=== PATIENT | male | born 1950 | race Caucasian/White ===

== ENCOUNTER 2016-10-11 19:47 | Inpatient (IN) | payer OTHER ==
[2016-10-11] MEDS ORDERED: Iohexol 240 (50 ml) PO STA (20:35)
[2016-10-11] MEDS ORDERED: Sodium Chloride 0.9% 1,000 ML IV ONE (20:35)
--- NOTE | 2016-10-11 20:52 | C.PDOC ---
History Of Present Illness 65 year old male presents to the ED with complaints of mid-abdominal pain since this morning. He noted he went to the pharmacy and took medication with a handwritten label containing blue pills and no further identifying information, with no relief. Patient denies any radiating pain, (+) nausea, (+) vomiting, (- ) fever, or diarrhea. No past abd surg Time Seen by Provider: 10/11/16 20:04 Chief Complaint (Nursing): Abdominal Pain History Per: Patient History/Exam Limitations: no limitations Onset/Duration Of Symptoms: Hrs Current Symptoms Are (Timing): Still Present Severity: Moderate Location Of Pain/Discomfort: Other (mid-abdominal pain) Quality Of Discomfort: "Pain" Associated Symptoms: Nausea, Vomiting. denies: Fever, Chills, Back Pain, Chest Pain Past Medical History Reviewed: Historical Data, Nursing Documentation, Vital Signs Vital Signs: Last Vital Signs Temp 98.8 F 10/12/16 08:13 Pulse 79 10/12/16 08:13 Resp 20 10/12/16 08:13 BP 98/55 L 10/12/16 08:13 Pulse Ox 99 10/12/16 08:13 - Medical History PMH: Diabetes, HTN Surgical History: No Surg Hx Family History: States: Unknown Family Hx - Social History Hx Tobacco Use: No Hx Alcohol Use: No Hx Substance Use: No Review Of Systems Constitutional: Negative for: Fever, Chills, Sweats Respiratory: Negative for: Cough, Shortness of Breath Gastrointestinal: Positive for: Abdominal Pain. Negative for: Nausea, Vomiting , Diarrhea Genitourinary: Negative for: Dysuria Musculoskeletal: Negative for: Back Pain Physical Exam - Physical Exam Appears: Non-toxic, No Acute Distress Skin: Warm, Dry Head: Normacephalic Neck: Supple Chest: Symmetrical, No Deformity Cardiovascular: Rhythm Regular, Murmur Respiratory: No Rales, No Rhonchi, No Wheezing Gastrointestinal/Abdominal: Soft, Tenderness (mid and lower abdominal tenderness ), No Distention, No Guarding, No Rebound Extremity: Normal ROM, No Pedal Edema Neurological/Psych: Oriented x3, Normal Speech, Normal Cognition ED Course And Treatment - Laboratory Results Result Diagrams: 10/12/16 08:25 10/12/16 08:25 O2 Sat by Pulse Oximetry: 98 - Radiology CXR: Read By Radiologist (see report) Progress Note: Labs IV CT meds ordered Medical Decision Making Medical Decision Making: Pt remained stable in the ED abd remained soft Pt tolerated contrast for CT without vomiting Results of labs and CT discussed with pt NGT placed by me Case discussed with dr Thapa recomedned medical admission she also follow Pt admitted to dr Stephanie Mace Disposition Counseled Patient/Family Regarding: Studies Performed, Diagnosis - Disposition Disposition: HOSPITALIZED Disposition Time: 00:00 Condition: SERIOUS - Clinical Impression Clinical Impression: Abdominal pain, SBO (small bowel obstruction) - Scribe Statement The provider has reviewed the documentation as recorded by the Scribe Ciera Mcdonald All medical record entries made by the Idaibsaroj were at my direction and personally dictated by me. I have reviewed the chart and agree that the record accurately reflects my personal performance of the history, physical exam, medical decision making, and the department course for this patient. I have also personally directed, reviewed, and agree with the discharge instructions and disposition.
[2016-10-11] MEDS ORDERED: Iohexol 240 (50 ml) ONE (21:04)
[2016-10-11] MEDS ORDERED: Sodium Chloride 0.45% 1,000 ML IV ONE (21:04)
[2016-10-11 21:26] LABS: BASO % 0.4 % (0.0-2.0); EOS # 0.5 K/uL (0.0-0.7); EOS % 5.8 % (0.0-4.0); HEMATOCRIT 39.5 % (35.0-51.0); LYMPH # 1.1 K/uL (1.0-4.3); LYMPH % 13.2 % (20.0-40.0); MEAN CELL VOLUME 100.9 fL (80.0-94.0); MEAN CORPUSCULAR HEMOGLOBIN 33.8 pg (27.0-31.0); MEAN CORPUSCULAR HGB CONC 33.5 g/dL (33.0-37.0); MEAN PLATELET VOLUME 8.4 fL (7.2-11.7); MONO # 0.7 K/uL (0.0-0.8); MONO % 8.5 % (0.0-10.0); RED CELL DISTRIBUTION WIDTH 14.4 % (11.5-14.5); WHITE BLOOD COUNT 8.4 K/uL (4.8-10.8)
[2016-10-11 21:29] LABS: RBC URINE 1 /hpf (0-3); URINE BILIRUBIN NEGATIVE (NEGATIVE); URINE BLOOD NEGATIVE (NEGATIVE); URINE COLOR Yellow (YELLOW); URINE GLUCOSE (UA) 3+ mg/dL (Normal); URINE KETONE 1+ mg/dL (NEGATIVE); URINE LEUKOCYTE ESTERASE NEG Leu/uL (Negative); URINE PROTEIN NEGATIVE (NEGATIVE); URINE UROBILINOGEN NORMAL mg/dL (0.2-1.0); WBC URINE < 1 /hpf (0-5)
[2016-10-11 21:37] LABS: CHLORIDE 97 mmol/L (98-107)
[2016-10-11 21:38] LABS: POTASSIUM 3.8 mmol/L (3.6-5.2); SODIUM 138 mmol/L (132-148)
[2016-10-11 21:40] LABS: ALB/GLOB RATIO 1.3 (1.0-2.1); ALKALINE PHOSPHATASE 95 U/L (38-126); ALT/SGPT 29 U/L (21-72); AST/SGOT 34 U/L (17-59); BILIRUBIN,TOTAL 0.4 mg/dL (0.2-1.3); BLOOD UREA NITROGEN 17 mg/dL (9-20); CARBON DIOXIDE 26 mmol/L (22-30); GFR AFRICAN-AMERICAN > 60; TOTAL PROTEIN 7.6 g/dL (6.3-8.3)
[2016-10-11 21:41] LABS: GLUCOSE,RANDOM 104 mg/dL (75-110)
[2016-10-11] MEDS ORDERED: Iodixanol 320 MG/ML 100 ML BOTTLE IV ONE (22:50)
[2016-10-12] MEDS ORDERED: Lidocaine 2% Inj (20ml) ONE (00:03)
[2016-10-12] MEDS ORDERED: Lidocaine 2% Jelly (Uro-Jet) ONE (00:04)
[2016-10-12] MEDS: Dextrose 5%/0.45% NS 1,000 ML IV SCH ×2 (03:04→17:46)
--- NOTE | 2016-10-12 03:21 | CP.PCM.CON ---
History of Present Illness - History of Present Illness History of Present Illness: General Surgery Consult Re: SBO HPI: 65M presents to ED C/O abdominal pain that began yesterday at 3 AM. Pain was mostly epigastric but felt pain in other spots. Last BM was todat and normal. He has never had a colonoscopy. Denies F/C, N/V/D/C, SOB, chest pain. Currently without complaints. PMH: DM, HLD PSH: R hand, cataracts SH: No tobacco, EtOH, of drug use All: NKDA Meds: See MAR Review of Systems - Review of Systems All systems: reviewed and no additional remarkable complaints except (as per HPI ) Past Patient History - Past Social History Smoking Status: Never Smoked - ENDOCRINE/METABOLIC Hx Diabetes Mellitus Type 2: Yes - MUSCULOSKELETAL/RHEUMATOLOGICAL Hx Falls: No - PSYCHIATRIC Hx Substance Use: No Meds Allergies/Adverse Reactions: Allergies Allergy/AdvReac Type Severity Reaction Status Date / Time No Known Allergies Allergy Verified 10/11/16 20:02 - Medications Medications: Current Medications Piperacillin Sod/Tazobactam Sod (Zosyn 3.375 In Ns 100ml) 100 mls @ 100 mls/hr IVPB Q8 [facility] Dextrose/Sodium Chloride (Dextrose 5%/0.45% Ns 1000 Ml) 1,000 mls @ 75 mls/hr IV .[id number] [facility] Insulin Aspart (Novolog) 0 unit SC ACHS [facility] PRN Reason: Protocol Pantoprazole Sodium (Protonix Inj) 40 mg IVP DAILY [facility] Physical Exam - Constitutional Appears: Non-toxic, No Acute Distress - Head Exam Head Exam: ATRAUMATIC, NORMOCEPHALIC - Eye Exam Eye Exam: EOMI. absent: Scleral icterus - ENT Exam ENT Exam: Mucous Membranes Moist Additional comments: trachea midline - Respiratory Exam Respiratory Exam: NORMAL BREATHING PATTERN. absent: Respiratory Distress - Cardiovascular Exam Cardiovascular Exam: RRR, +S1, +S2 - GI/Abdominal Exam GI & Abdominal Exam: Soft, Tenderness (with deep plapation). absent: Distended , Firm, Guarding, Rebound, Rigid - Rectal Exam Rectal Exam: Deferred - Extremities Exam Extremities exam: Positive for: normal capillary refill. Negative for: calf tenderness, pedal edema - Back Exam Back exam: absent: CVA tenderness (L), CVA tenderness (R) - Neurological Exam Neurological exam: Alert, Oriented x3 - Psychiatric Exam Psychiatric exam: Normal Affect, Normal Mood - Skin Skin Exam: Dry, Warm Results - Vital Signs Recent Vital Signs: Last Vital Signs Temp 97.8 F 10/12/16 02:40 Pulse 61 10/12/16 02:40 Resp 20 10/12/16 02:40 BP 118/71 10/12/16 02:40 Pulse Ox 96 10/12/16 02:40 - Labs Result Diagrams: 10/11/16 21:20 10/11/16 21:20 - Imaging and Cardiology CT scan - abdomen Status: Image reviewed by me, Report reviewed by me Assessment & Plan - Assessment and Plan (Free Text) Assessment: 65M with Low SBO Plan: NPO, bowel rest IVF NGT to LIS Serial abd exams Analgesia Lindsay Garcia D/W Dr. Elier Cruz PGY3
[2016-10-12] MEDS ORDERED: Dextrose 5%/0.45% NS 1,000 ML IV SCH (04:30)
[2016-10-12] MEDS: Piperacillin/Tazobact 3.375 gm 100 ML IVPB SCH ×3 (05:21→21:23)
[2016-10-12] MEDS: Albuterol-Ipratrop 3 mg / 0.5 (3 ml) UD INH SCH ×3 (07:46→19:37)
[2016-10-12] MEDS: (Novolog) Insulin Aspart, Recombinant 100 u/ml 10 ml vial SC SCH ×4 (08:06→21:31)
[2016-10-12 08:31] LABS: BASO % 0.6 % (0.0-2.0); EOS # 0.1 K/uL (0.0-0.7); EOS % 1.3 % (0.0-4.0); HEMATOCRIT 36.8 % (35.0-51.0); LYMPH # 0.5 K/uL (1.0-4.3); LYMPH % 10.6 % (20.0-40.0); MEAN CELL VOLUME 102.2 fL (80.0-94.0); MEAN CORPUSCULAR HEMOGLOBIN 33.5 pg (27.0-31.0); MEAN CORPUSCULAR HGB CONC 32.8 g/dL (33.0-37.0); MEAN PLATELET VOLUME 8.5 fL (7.2-11.7); MONO # 0.4 K/uL (0.0-0.8); RED CELL DISTRIBUTION WIDTH 14.2 % (11.5-14.5); WHITE BLOOD COUNT 4.4 K/uL (4.8-10.8)
[2016-10-12 08:56] LABS: CHLORIDE 100 mmol/L (98-107); POTASSIUM 3.3 mmol/L (3.6-5.2); SODIUM 137 mmol/L (132-148)
[2016-10-12 08:58] LABS: ALB/GLOB RATIO 1.3 (1.0-2.1); ALKALINE PHOSPHATASE 84 U/L (38-126); ALT/SGPT 28 U/L (21-72); AST/SGOT 29 U/L (17-59); BLOOD UREA NITROGEN 18 mg/dL (9-20); CARBON DIOXIDE 23 mmol/L (22-30); GFR AFRICAN-AMERICAN > 60; TOTAL PROTEIN 6.4 g/dL (6.3-8.3)
[2016-10-12 08:59] LABS: GLUCOSE,RANDOM 97 mg/dL (75-110); MAGNESIUM 1.8 mg/dL (1.6-2.3); PHOSPHOROUS 2.6 mg/dL (2.5-4.5)
--- NOTE | 2016-10-12 09:31 | CP.PCM.PN ---
Subjective - Date & Time of Evaluation Date of Evaluation: 10/12/16 Time of Evaluation: 09:30 - Subjective Subjective: present with epigastric abdominal pain Objective - Vital Signs/Intake and Output Vital Signs (last 24 hours): Temp Pulse Resp BP Pulse Ox 98.8 F 79 20 98/55 L 99 10/12/16 08:13 10/12/16 08:13 10/12/16 08:13 10/12/16 08:13 10/12/16 08:13 Intake and Output: 10/12/16 10/12/16 06:59 18:59 Output Total 250 Balance -250 - Medications Medications: Current Medications Albuterol/Ipratropium (Duoneb 3 Mg/0.5 Mg (3 Ml) Ud) 3 ml INH RQ6 [facility] Last Admin: 10/12/16 07:46 Dose: 3 ml Piperacillin Sod/Tazobactam Sod (Zosyn 3.375 In Ns 100ml) 100 mls @ 100 mls/hr IVPB Q8 [facility] Last Admin: 10/12/16 05:21 Dose: 100 mls/hr Dextrose/Sodium Chloride (Dextrose 5%/0.45% Ns 1000 Ml) 1,000 mls @ 75 mls/hr IV .[id number] [facility] Last Admin: 10/12/16 03:04 Dose: 75 mls/hr Insulin Aspart (Novolog) 0 unit SC ACHS [facility] PRN Reason: Protocol Last Admin: 10/12/16 08:06 Dose: Not Given Metoclopramide HCl (Reglan) 5 mg IVP Q6 [facility] Pantoprazole Sodium (Protonix Inj) 40 mg IVP DAILY [facility] Pneumococcal Polyvalent Vaccine (Pneumovax 23 Vaccine) 0.5 ml IM .ONCE ONE Stop: 10/14/16 10:01 - Labs Labs: 10/12/16 08:25 10/12/16 08:25 Assessment and Plan (1) Abdominal pain Status: Acute (2) Abnormal CT of brain Status: Acute (3) Bandemia Status: Acute (4) Bronchitis Status: Acute (5) Diabetes Status: Acute (6) Elevated LFTs Status: Acute (7) HTN (hypertension) Status: Acute (8) Headache Status: Acute (9) Headache Status: Acute (10) Pharyngitis Status: Acute (11) Prophylactic measure Status: Acute (12) SBO (small bowel obstruction) Status: Acute - Assessment and Plan (Free Text) Plan: NPO, bowel rest IVF NGT to LIS Serial abd exams Analgesia Lindsay Garcia D/W Dr. Thapa
--- NOTE | 2016-10-12 10:28 | CT ---
PROCEDURE: CT Abdomen and Pelvis with oral and IV contrast. HISTORY: Mid to lower abd pain COMPARISON: None available. TECHNIQUE: Contiguous axial images of the abdomen and pelvis. Oral and IV contrast was administered. Coronal and Sagittal reformats generated and reviewed. Contrast dose: 100 mL Visipaque 320 Radiation dose: Total exam DLP = 612.11 mGy-cm. This CT exam was performed using one or more of the following dose reduction techniques: Automated exposure control, adjustment of the mA and/or kV according to patient size, and/or use of iterative reconstruction technique. FINDINGS: LOWER THORAX: No visible consolidation, pleural effusion, or pneumothorax. LIVER: Unremarkable. GALLBLADDER AND BILE DUCTS: Unremarkable. PANCREAS: Unremarkable. SPLEEN: Evidence of cleft. Otherwise unremarkable. ADRENALS: Indeterminate 2 cm nodule involving the left adrenal gland, indeterminate. The right adrenal gland appears unremarkable. KIDNEYS AND URETERS: The kidneys enhance symmetrically. No hydronephrosis or obstructing renal calculus. BLADDER: The urinary bladder appears unremarkable. REPRODUCTIVE: The prostate gland measures approximately 4.0 x 5.0 cm. APPENDIX: The appendix appears within normal limits of caliber. No secondary signs of acute appendicitis. BOWEL: Gastric distension. Multiple dilated loops of small bowel with evidence of fecalization, interloop fluid, N suspected hyperemia. Transition point presumed within the distal small bowel proximal to the ileocecal valve (coronal image 60). Distal bowel loops appear decompressed. PERITONEUM: No significant free fluid. No definite free air. LYMPH NODES: No bulky lymphadenopathy identified. VASCULATURE: No aortic aneurysm. BONES: Mild degenerative changes. OTHER FINDINGS: None. IMPRESSION: Findings consistent with high-grade distal small bowel obstruction as above. 2 cm left adrenal gland nodule indeterminate. Recommend dedicated cross-sectional imaging for further characterization. Preliminary impression was provided by virtual radiologic.
[2016-10-12] MEDS: Potassium Chloride 20 mEq 100 ML IVPB SCH ×2 (11:35→16:23)
--- NOTE | 2016-10-12 13:17 | RAD ---
PROCEDURE: Radiographs of the chest and abdomen (obstructive series) HISTORY: SBO COMPARISON: CT abdomen and pelvis with contrast performed 10/11/16, chest x-ray performed 11/04/13 TECHNIQUE: AP radiograph of the chest, with upright and supine radiographs of the abdomen. FINDINGS: CHEST: Heart size appears top normal. Examination limited by habitus and hypoinflation. Central vascular congestion. Bibasilar atelectasis. Please note that chest x-ray has limited sensitivity for the detection of pulmonary masses. ABDOMEN AND PELVIS: Examination limited by motion. Oral contrast is seen within the right colon. Residual contrast within the urinary bladder. Moderate constipation. Nonspecific bowel gas pattern with prominent of small bowel loops in the mid abdomen. No definite free air. Degenerative changes. IMPRESSION: Central vascular congestion. Bibasilar atelectasis. Residual contrast within the urinary bladder. Moderate constipation. Nonspecific bowel gas pattern with prominent of small bowel loops in the mid abdomen.
[2016-10-13] MEDS: Albuterol-Ipratrop 3 mg / 0.5 (3 ml) UD INH SCH ×4 (01:12→20:26)
[2016-10-13] MEDS: Piperacillin/Tazobact 3.375 gm 100 ML IVPB SCH (06:04)
[2016-10-13] MEDS: Dextrose 5%/0.45% NS 1,000 ML IV SCH (06:05)
--- NOTE | 2016-10-13 07:21 | CP.PCM.PN ---
Subjective - Date & Time of Evaluation Date of Evaluation: 10/13/16 Time of Evaluation: 10:00 - Subjective Subjective: Dr. Mace service: Patient is seen in room. Patient reports having several episodes of nausea/ vomiting and abdominal pain. He says the symptoms happend abrubtly. He denies fever, chills, sick contacts, recent travel. He also denies shortness of breath , confusion, chest pain, palpitations, dysuria. Objective - Vital Signs/Intake and Output Vital Signs (last 24 hours): Temp Pulse Resp BP Pulse Ox 99.4 F 74 18 100/56 L 95 10/13/16 00:03 10/13/16 00:03 10/13/16 00:03 10/13/16 00:03 10/13/16 00:03 Intake and Output: 10/13/16 10/13/16 06:59 18:59 Intake Total 460 Output Total 725 Balance -265 - Medications Medications: Current Medications Albuterol/Ipratropium (Duoneb 3 Mg/0.5 Mg (3 Ml) Ud) 3 ml INH RQ6 [facility] Last Admin: 10/13/16 07:16 Dose: 3 ml Piperacillin Sod/Tazobactam Sod (Zosyn 3.375 In Ns 100ml) 100 mls @ 100 mls/hr IVPB Q8 [facility] Last Admin: 10/13/16 06:04 Dose: 100 mls/hr Dextrose/Sodium Chloride (Dextrose 5%/0.45% Ns 1000 Ml) 1,000 mls @ 75 mls/hr IV .[id number] [facility] Last Admin: 10/13/16 06:05 Dose: 75 mls/hr Insulin Aspart (Novolog) 0 unit SC ACHS [facility] PRN Reason: Protocol Last Admin: 10/12/16 21:31 Dose: Not Given Metoclopramide HCl (Reglan) 5 mg IVP Q6 [facility] Last Admin: 10/13/16 06:04 Dose: 5 mg Pantoprazole Sodium (Protonix Inj) 40 mg IVP DAILY [facility] Last Admin: 10/12/16 10:27 Dose: 40 mg Pneumococcal Polyvalent Vaccine (Pneumovax 23 Vaccine) 0.5 ml IM .ONCE ONE Stop: 10/14/16 10:01 - Labs Labs: 10/12/16 08:25 10/12/16 08:25 - Constitutional Appears: Non-toxic, No Acute Distress - Head Exam Head Exam: NORMAL INSPECTION - Eye Exam Pupil Exam: NORMAL ACCOMODATION - ENT Exam ENT Exam: Normal Exam Additional comments: Ng tube noted - Respiratory Exam Respiratory Exam: Clear to Ausculation Bilateral. absent: Rhonchi, Wheezes - Cardiovascular Exam Cardiovascular Exam: REGULAR RHYTHM, RRR, +S1, +S2. absent: Gallop, Rubs - GI/Abdominal Exam GI & Abdominal Exam: Soft, Normal Bowel Sounds. absent: Tenderness - Extremities Exam Extremities Exam: Normal Inspection - Skin Skin Exam: Normal Color Assessment and Plan (1) SBO (small bowel obstruction) Assessment & Plan: NG tube is clipped, on liquid diet, will advance as tolerated per surgery consult, help appreciated. Potassium 40meq added to IV fluids. Follow up am cmp Status: Acute (2) Diabetes Assessment & Plan: accu checks achs and sliding scale as needed Status: Acute (3) HTN (hypertension) Status: Acute (4) Bandemia Assessment & Plan: bands of 22 and luekocytosis, patient on Zosyn, Dr. Valencia consulted. Follow up on blood culture. Status: Acute (5) Prophylactic measure Assessment & Plan: Reglan 5mg IVP Q6H. Protonix 40mg Lovenox 40mg sc daily Status: Acute
[2016-10-13] MEDS: (Novolog) Insulin Aspart, Recombinant 100 u/ml 10 ml vial SC SCH ×3 (08:13→18:07)
[2016-10-13 08:22] VITALS: RESP 20
--- NOTE | 2016-10-13 10:26 | RAD ---
PROCEDURE: Radiographs of the chest and abdomen (obstructive series) HISTORY: r/o obstruction COMPARISON: No prior. TECHNIQUE: AP radiograph of the chest, with upright and supine radiographs of the abdomen. FINDINGS: CHEST: Lungs: No evidence of acute pulmonary disease. Cardiovascular: Normal size heart. No pulmonary vascular congestion. Pleura: No pleural fluid. No pneumothorax. Other findings: None ABDOMEN AND PELVIS: Bowel: Mildly dilated small bowel loops seen. The large bowel loops are not dilated. NG tube seen in the stomach extending to the descending duodenum. The stomach is not distended Free air: None. Bones: Unremarkable. Other findings: None. IMPRESSION: Mildly dilated small bowel loops. The large bowel are not dilated. NG tube seen at appropriate position with the tip is likely at the distal descending duodenum.
[2016-10-13 11:10] LABS: BASO % 0.4 % (0.0-2.0); EOS # 0.1 K/uL (0.0-0.7); EOS % 0.5 % (0.0-4.0); HEMATOCRIT 32.6 % (35.0-51.0); LYMPH % 8.6 % (20.0-40.0); MEAN CELL VOLUME 101.7 fL (80.0-94.0); MEAN CORPUSCULAR HEMOGLOBIN 33.2 pg (27.0-31.0); MEAN CORPUSCULAR HGB CONC 32.6 g/dL (33.0-37.0); MEAN PLATELET VOLUME 8.5 fL (7.2-11.7); MONO # 0.7 K/uL (0.0-0.8); MONO % 6.4 % (0.0-10.0); PLATELET COUNT 201 K/uL (130-400); RED CELL DISTRIBUTION WIDTH 14.5 % (11.5-14.5)
[2016-10-13 11:19] LABS: WHITE BLOOD COUNT 11.5 K/uL (4.8-10.8)
[2016-10-13 11:24] LABS: CHLORIDE 102 mmol/L (98-107); SODIUM 136 mmol/L (132-148)
[2016-10-13 11:25] LABS: POTASSIUM 3.3 mmol/L (3.6-5.2)
[2016-10-13 11:26] LABS: GFR AFRICAN-AMERICAN > 60
[2016-10-13 11:27] LABS: ALB/GLOB RATIO 1.2 (1.0-2.1); ALKALINE PHOSPHATASE 67 U/L (38-126); ALT/SGPT 20 U/L (21-72); AST/SGOT 25 U/L (17-59); BILIRUBIN,TOTAL 0.8 mg/dL (0.2-1.3); BLOOD UREA NITROGEN 19 mg/dL (9-20); CALCIUM 7.7 mg/dl (8.6-10.4); CARBON DIOXIDE 23 mmol/L (22-30); GLUCOSE,RANDOM 101 mg/dL (75-110); PHOSPHOROUS 2.9 mg/dL (2.5-4.5); TOTAL PROTEIN 6.2 g/dL (6.3-8.3)
[2016-10-13 11:28] LABS: MAGNESIUM 2.3 mg/dL (1.6-2.3)
[2016-10-13 11:46] LABS: EOSINOPHIL 1 % (0-4); NEUTROPHIL 63 % (50-75); TOTAL CELLS COUNTED 100
[2016-10-13] MEDS ORDERED: Potassium Chloride 40 MEQ in Dextrose 5%/0.45% NS 1,000 ML IV SCH (11:51)
[2016-10-13] MEDS: Potassium Chloride 40 MEQ in Dextrose 5%/0.45% NS 1,000 ML IV SCH ×2 (12:25→21:18)
--- NOTE | 2016-10-13 13:01 | CP.PCM.PN ---
Subjective - Date & Time of Evaluation Date of Evaluation: 10/13/16 Time of Evaluation: 10:00 - Subjective Subjective: pt. feels hungry denies nausea, vomiting Objective - Vital Signs/Intake and Output Vital Signs (last 24 hours): Temp Pulse Resp BP Pulse Ox 99.1 F 77 20 110/54 L 91 L 10/13/16 08:00 10/13/16 08:00 10/13/16 08:00 10/13/16 08:00 10/13/16 08:00 Intake and Output: 10/13/16 10/13/16 06:59 18:59 Intake Total 460 Output Total 725 Balance -265 - Medications Medications: Current Medications Albuterol/Ipratropium (Duoneb 3 Mg/0.5 Mg (3 Ml) Ud) 3 ml INH RQ6 [facility] Last Admin: 10/13/16 07:16 Dose: 3 ml Piperacillin Sod/Tazobactam Sod (Zosyn 3.375 In Ns 100ml) 100 mls @ 100 mls/hr IVPB Q8 [facility] Last Admin: 10/13/16 06:04 Dose: 100 mls/hr Potassium Chloride 40 meq/ (Dextrose/Sodium Chloride) 1,020 mls @ 125 mls/hr IV .Q8H10M [facility] Last Admin: 10/13/16 12:25 Dose: 125 mls/hr Insulin Aspart (Novolog) 0 unit SC ACHS [facility] PRN Reason: Protocol Last Admin: 10/13/16 11:54 Dose: Not Given Metoclopramide HCl (Reglan) 5 mg IVP Q6 [facility] Last Admin: 10/13/16 12:25 Dose: 5 mg Pantoprazole Sodium (Protonix Inj) 40 mg IVP DAILY [facility] Last Admin: 10/13/16 09:49 Dose: 40 mg Pneumococcal Polyvalent Vaccine (Pneumovax 23 Vaccine) 0.5 ml IM .ONCE ONE Stop: 10/14/16 10:01 - Labs Labs: 10/13/16 10:54 10/13/16 10:54 - Constitutional Appears: Well - Head Exam Head Exam: ATRAUMATIC, NORMAL INSPECTION, NORMOCEPHALIC - Eye Exam Eye Exam: EOMI, Normal appearance, PERRL Pupil Exam: NORMAL ACCOMODATION, PERRL - ENT Exam ENT Exam: Mucous Membranes Moist, Normal Exam - Neck Exam Neck Exam: Full ROM, Normal Inspection. absent: Lymphadenopathy - Respiratory Exam Respiratory Exam: Decreased Breath Sounds - Cardiovascular Exam Cardiovascular Exam: REGULAR RHYTHM, +S1, +S2 - GI/Abdominal Exam GI & Abdominal Exam: Soft, Diminished Bowel Sounds - Rectal Exam Rectal Exam: Deferred Assessment and Plan - Assessment and Plan (Free Text) Plan: clamp NGT CLD IVF Serial abd exams monitor bowel fxn pain management cont anti-emetics f/u Dr. Thapa
--- NOTE | 2016-10-13 13:13 | RAD ---
HISTORY: rule out pneumonia COMPARISON: 11/04/2013 FINDINGS: LUNGS: NG tube extending into the stomach. Moderate venous congestion. Right hilar prominence. Right midlung atelectasis. Patchy bibasilar airspace opacities ; left greater than right. Trace left pleural effusion. PLEURA: As above. CARDIOVASCULAR: Normal. OSSEOUS STRUCTURES: No significant abnormalities. VISUALIZED UPPER ABDOMEN: Normal. OTHER FINDINGS: None. IMPRESSION: NG tube extending into the stomach. Moderate venous congestion. Right hilar prominence. Right midlung atelectasis. Patchy bibasilar airspace opacities ; left greater than right. Trace left pleural effusion.
[2016-10-13] MEDS: Piperacillin/Tazobact 3.375 GM in Sodium Chloride 0.9% 100 ML IVPB SCH ×2 (14:46→21:17)
[2016-10-13 16:13] LABS: FOLATE 19.8 ng/mL
--- NOTE | 2016-10-13 16:19 | CP.PCM.PN ---
Subjective - Date & Time of Evaluation Date of Evaluation: 10/13/16 Time of Evaluation: 07:00 - Subjective Subjective: General Surgery Dr. Thapa Pt S&E @bedside. NAEO. reports being hungry and requesting food. denies N/V, F/ C. admits to flatus. (-)BM. NPO w/ NGT in place. Objective - Vital Signs/Intake and Output Vital Signs (last 24 hours): Temp Pulse Resp BP Pulse Ox 99.1 F 77 20 110/54 L 91 L 10/13/16 08:00 10/13/16 15:12 10/13/16 08:00 10/13/16 08:00 10/13/16 08:00 Intake and Output: 10/13/16 10/13/16 06:59 18:59 Intake Total 460 1100 Output Total 725 20 Balance -265 1080 - Medications Medications: Current Medications Albuterol/Ipratropium (Duoneb 3 Mg/0.5 Mg (3 Ml) Ud) 3 ml INH RQ6 [facility] Last Admin: 10/13/16 13:02 Dose: 3 ml Potassium Chloride 40 meq/ (Dextrose/Sodium Chloride) 1,020 mls @ 125 mls/hr IV .Q8H10M [facility] Last Admin: 10/13/16 12:25 Dose: 125 mls/hr Piperacillin Sod/Tazobactam (Sod 3.375 gm/ Sodium Chloride) 100 mls @ 100 mls/ hr IVPB Q8 [facility] Last Admin: 10/13/16 14:46 Dose: 100 mls/hr Insulin Aspart (Novolog) 0 unit SC ACHS [facility] PRN Reason: Protocol Last Admin: 10/13/16 11:54 Dose: Not Given Metoclopramide HCl (Reglan) 5 mg IVP Q6 [facility] Last Admin: 10/13/16 12:25 Dose: 5 mg Pantoprazole Sodium (Protonix Inj) 40 mg IVP DAILY [facility] Last Admin: 10/13/16 09:49 Dose: 40 mg Pneumococcal Polyvalent Vaccine (Pneumovax 23 Vaccine) 0.5 ml IM .ONCE ONE Stop: 10/14/16 10:01 - Labs Labs: 10/13/16 10:54 10/13/16 10:54 - Constitutional Appears: Non-toxic, No Acute Distress - Head Exam Head Exam: NORMAL INSPECTION - Eye Exam Eye Exam: Normal appearance - ENT Exam ENT Exam: Mucous Membranes Moist - Respiratory Exam Respiratory Exam: NORMAL BREATHING PATTERN. absent: Accessory Muscle Use, Respiratory Distress - GI/Abdominal Exam GI & Abdominal Exam: Soft. absent: Distended, Guarding, Tenderness, Rebound - Neurological Exam Neurological Exam: Alert, Awake, Oriented x3 - Psychiatric Exam Psychiatric exam: Normal Affect, Normal Mood - Skin Skin Exam: Dry, Intact, Normal Color, Warm Assessment and Plan - Assessment and Plan (Free Text) Assessment: 65 y/o M w/ resolved Low SBO - clamp NGT - CLD - IVF - Serial abd exams - monitor bowel fxn - pain management - cont anti-emetics Further recs per Dr. Elier Gordon DO PGY1
[2016-10-13 17:37] LABS: DRAW SITE VENOUS
[2016-10-14] MEDS: Potassium Chloride 40 MEQ in Dextrose 5%/0.45% NS 1,000 ML IV SCH ×3 (01:24→13:44)
[2016-10-14] MEDS: Piperacillin/Tazobact 3.375 GM in Sodium Chloride 0.9% 100 ML IVPB SCH ×3 (05:44→22:05)
[2016-10-14] MEDS: Albuterol-Ipratrop 3 mg / 0.5 (3 ml) UD INH SCH ×3 (07:46→19:36)
[2016-10-14 07:47] LABS: BASO % 0.3 % (0.0-2.0); EOS # 0.5 K/uL (0.0-0.7); EOS % 5.2 % (0.0-4.0); HEMATOCRIT 32.5 % (35.0-51.0); LYMPH # 0.9 K/uL (1.0-4.3); LYMPH % 9.9 % (20.0-40.0); MEAN CORPUSCULAR HGB CONC 33.3 g/dL (33.0-37.0); MEAN PLATELET VOLUME 8.3 fL (7.2-11.7); MONO # 0.7 K/uL (0.0-0.8); PLATELET COUNT 196 K/uL (130-400); RED CELL DISTRIBUTION WIDTH 14.7 % (11.5-14.5); WHITE BLOOD COUNT 9.3 K/uL (4.8-10.8)
[2016-10-14 07:54] LABS: CHLORIDE 103 mmol/L (98-107)
[2016-10-14 07:55] LABS: POTASSIUM 4.2 mmol/L (3.6-5.2); SODIUM 138 mmol/L (132-148)
[2016-10-14 07:57] LABS: ALB/GLOB RATIO 1.2 (1.0-2.1); ALKALINE PHOSPHATASE 68 U/L (38-126); AST/SGOT 19 U/L (17-59); BILIRUBIN,TOTAL 0.8 mg/dL (0.2-1.3); BLOOD UREA NITROGEN 11 mg/dL (9-20); CARBON DIOXIDE 24 mmol/L (22-30); GFR AFRICAN-AMERICAN > 60; GLUCOSE,RANDOM 107 mg/dL (75-110); TOTAL PROTEIN 6.4 g/dL (6.3-8.3)
[2016-10-14 07:58] LABS: ALT/SGPT 18 U/L (21-72); MAGNESIUM 2.3 mg/dL (1.6-2.3); PHOSPHOROUS 2.2 mg/dL (2.5-4.5)
[2016-10-14] MEDS: (Novolog) Insulin Aspart, Recombinant 100 u/ml 10 ml vial SC SCH ×5 (09:21→22:07)
[2016-10-14] MEDS: Enoxaparin 40 mg Syringe SC SCH ×2 (09:22→13:44)
[2016-10-14] MEDS ORDERED: Pneumococcal 23-Valent Vaccine IM ONE (10:00)
--- NOTE | 2016-10-14 10:27 | CP.PCM.PN ---
Subjective - Date & Time of Evaluation Date of Evaluation: 10/14/16 Time of Evaluation: 07:05 - Subjective Subjective: Pt S&E. NAEO. Pt states he has no pain and no longer feels bloated. He has had flatus but has not had a BM yet. Pt denies nausea, vomiting, fever or chills. Diet to be advanced and pt is cleared from a surgical standpoint. Objective - Vital Signs/Intake and Output Vital Signs (last 24 hours): Temp Pulse Resp BP Pulse Ox 97.9 F 56 L 20 126/71 95 10/14/16 07:16 10/14/16 08:30 10/14/16 07:16 10/14/16 07:16 10/14/16 07:16 Intake and Output: 10/14/16 10/14/16 06:59 18:59 Intake Total 2150 Output Total 5 Balance 2145 - Medications Medications: Current Medications Albuterol/Ipratropium (Duoneb 3 Mg/0.5 Mg (3 Ml) Ud) 3 ml INH RQ6 [facility] Last Admin: 10/14/16 07:46 Dose: 3 ml Enoxaparin Sodium (Lovenox) 40 mg SC DAILY [facility] Potassium Chloride 40 meq/ (Dextrose/Sodium Chloride) 1,020 mls @ 125 mls/hr IV .Q8H10M [facility] Last Admin: 10/14/16 03:36 Dose: Not Given Piperacillin Sod/Tazobactam (Sod 3.375 gm/ Sodium Chloride) 100 mls @ 100 mls/ hr IVPB Q8 [facility] Last Admin: 10/14/16 05:44 Dose: 100 mls/hr Insulin Aspart (Novolog) 0 unit SC ACHS [facility] PRN Reason: Protocol Last Admin: 10/14/16 09:21 Dose: Not Given Metoclopramide HCl (Reglan) 5 mg IVP Q6 [facility] Last Admin: 10/14/16 06:55 Dose: 5 mg Pantoprazole Sodium (Protonix Inj) 40 mg IVP DAILY [facility] Last Admin: 10/14/16 09:22 Dose: 40 mg - Labs Labs: 10/14/16 07:34 10/14/16 07:34 - Constitutional Appears: Non-toxic, No Acute Distress - Head Exam Head Exam: ATRAUMATIC, NORMOCEPHALIC - Eye Exam Eye Exam: EOMI. absent: Scleral icterus - ENT Exam ENT Exam: Mucous Membranes Moist - Respiratory Exam Respiratory Exam: NORMAL BREATHING PATTERN. absent: Respiratory Distress - Cardiovascular Exam Cardiovascular Exam: +S1, +S2. absent: JVD - GI/Abdominal Exam GI & Abdominal Exam: Soft. absent: Distended, Firm, Guarding, Rigid, Tenderness - Neurological Exam Neurological Exam: Alert, Awake, Oriented x3 - Psychiatric Exam Psychiatric exam: Normal Affect, Normal Mood - Skin Skin Exam: Dry, Intact, Warm Assessment and Plan - Assessment and Plan (Free Text) Assessment: 65 y/o M w/ resolved SBO - Reg Diet - cleared for d/c from surgical standpoint -D/w Dr. Elier Holguin PGY1
[2016-10-14 10:59] LABS: EOSINOPHIL 4 % (0-4); NEUTROPHIL 68 % (50-75); TOTAL CELLS COUNTED 100
--- NOTE | 2016-10-14 11:08 | CP.PCM.CON ---
History of Present Illness - History of Present Illness History of Present Illness: 65M presents to ED C/O abdominal pain that began yesterday at 3 AM. Pain was mostly epigastric but felt pain in other spots. Last BM was todat and normal. He has never had a colonoscopy. Denies F/C, N/V/D/C, SOB, chest pain. adm for SBO started on IV antibiotics Has bancemia PMH: DM, HLD PSH: R hand, cataracts SH: No tobacco, EtOH, of drug use All: NKDA Meds: See MAR Past Patient History - Past Medical History & Family History Past Medical History?: Yes - Past Social History Smoking Status: Never Smoked - CARDIAC Hx Hypertension: Yes - PULMONARY Hx Respiratory Disorders: No - NEUROLOGICAL Hx Neurological Disorder: No - HEENT Hx HEENT Problems: Yes Hx Cataracts: Yes - RENAL Hx Chronic Kidney Disease: No - ENDOCRINE/METABOLIC Hx Diabetes Mellitus Type 2: Yes - HEMATOLOGICAL/ONCOLOGICAL Hx Blood Disorders: No - INTEGUMENTARY Hx Dermatological Problems: No - MUSCULOSKELETAL/RHEUMATOLOGICAL Hx Falls: No - GASTROINTESTINAL Hx Gastrointestinal Disorders: No - GENITOURINARY/GYNECOLOGICAL Hx Genitourinary Disorders: No - PSYCHIATRIC Hx Substance Use: No - SURGICAL HISTORY Hx Surgeries: Yes Hx Cataract Extraction: Yes - ANESTHESIA Hx Anesthesia: Yes Hx Anesthesia Reactions: No Hx Malignant Hyperthermia: No Has any member of the family had a problem w/ anesthesia?: No Meds Allergies/Adverse Reactions: Allergies Allergy/AdvReac Type Severity Reaction Status Date / Time No Known Allergies Allergy Verified 10/11/16 20:02 - Medications Medications: Current Medications Albuterol/Ipratropium (Duoneb 3 Mg/0.5 Mg (3 Ml) Ud) 3 ml INH RQ6 [facility] Last Admin: 10/14/16 07:46 Dose: 3 ml Enoxaparin Sodium (Lovenox) 40 mg SC DAILY [facility] Potassium Chloride 40 meq/ (Dextrose/Sodium Chloride) 1,020 mls @ 125 mls/hr IV .Q8H10M [facility] Last Admin: 10/14/16 03:36 Dose: Not Given Piperacillin Sod/Tazobactam (Sod 3.375 gm/ Sodium Chloride) 100 mls @ 100 mls/ hr IVPB Q8 [facility] Last Admin: 10/14/16 05:44 Dose: 100 mls/hr Insulin Aspart (Novolog) 0 unit SC ACHS [facility] PRN Reason: Protocol Last Admin: 10/14/16 09:21 Dose: Not Given Metoclopramide HCl (Reglan) 5 mg IVP Q6 [facility] Last Admin: 10/14/16 06:55 Dose: 5 mg Pantoprazole Sodium (Protonix Inj) 40 mg IVP DAILY [facility] Last Admin: 10/14/16 09:22 Dose: 40 mg Results - Vital Signs Recent Vital Signs: Last Vital Signs Temp 97.9 F 10/14/16 07:16 Pulse 56 L 10/14/16 08:30 Resp 20 10/14/16 07:16 BP 126/71 10/14/16 07:16 Pulse Ox 95 10/14/16 07:16 - Labs Result Diagrams: 10/14/16 07:34 10/14/16 07:34 Labs: Laboratory Results - last 24 hr 10/13/16 10/13/16 10/13/16 10:54 11:21 14:29 WBC 11.5 H D RBC 3.20 L Hgb 10.6 L Hct 32.6 L MCV 101.7 H MCH 33.2 H MCHC 32.6 L RDW 14.5 Plt Count 201 MPV 8.5 Neut % (Auto) 84.1 H Lymph % (Auto) 8.6 L [place] % (Auto) 6.4 Eos % (Auto) 0.5 Baso % (Auto) 0.4 Neut # 9.7 H Lymph # 1.0 [place] # 0.7 Eos # 0.1 Baso # 0.0 Neutrophils % (Manual) 63 Band Neutrophils % 22 H* Lymphocytes % (Manual) 10 L Monocytes % (Manual) 4 Eosinophils % (Manual) 1 Toxic Granulation Present Dohle Bodies Present Platelet Estimate Normal RBC Morphology Normal Basophilic Stippling Macrocytosis (manual) Puncture Site pCO2 pO2 HCO3 ABG pH ABG Total CO2 ABG O2 Saturation ABG Base Excess Anish Test ABG Potassium Glucose Lactate Sodium 136 Potassium 3.3 L Chloride 102 Carbon Dioxide 23 Anion Gap 15 BUN 19 Creatinine 0.9 Est GFR ( Amer) > 60 Est GFR (Non-Af Amer) > 60 POC Glucose (mg/dL) 121 H Random Glucose 101 Hemoglobin A1c 7.5 H D Calcium 7.7 L Phosphorus 2.9 Magnesium 2.3 Total Bilirubin 0.8 AST 25 ALT 20 L D Alkaline Phosphatase 67 Total Protein 6.2 L Albumin 3.4 L Globulin 2.8 Albumin/Globulin Ratio 1.2 Vitamin B12 355 Folate 19.8 Arterial Blood Potassium 10/13/16 10/13/16 10/13/16 17:08 17:30 21:52 WBC RBC Hgb Hct MCV MCH MCHC RDW Plt Count MPV Neut % (Auto) Lymph % (Auto) [place] % (Auto) Eos % (Auto) Baso % (Auto) Neut # Lymph # [place] # Eos # Baso # Neutrophils % (Manual) Band Neutrophils % Lymphocytes % (Manual) Monocytes % (Manual) Eosinophils % (Manual) Toxic Granulation Dohle Bodies Platelet Estimate RBC Morphology Basophilic Stippling Macrocytosis (manual) Puncture Site Venous pCO2 29 L pO2 93 HCO3 22.9 ABG pH 7.45 ABG Total CO2 21.1 L ABG O2 Saturation 98.7 H ABG Base Excess -2.6 L Anish Test N/a ABG Potassium 3.1 L Glucose 90 Lactate 1.0 Sodium 141.0 Potassium Chloride 113.0 H Carbon Dioxide Anion Gap BUN Creatinine Est GFR ( Amer) Est GFR (Non-Af Amer) POC Glucose (mg/dL) 89 133 H Random Glucose Hemoglobin A1c Calcium Phosphorus Magnesium Total Bilirubin AST ALT Alkaline Phosphatase Total Protein Albumin Globulin Albumin/Globulin Ratio Vitamin B12 Folate Arterial Blood Potassium 3.1 L 10/14/16 10/14/16 06:49 07:34 WBC 9.3 RBC 3.18 L Hgb 10.8 L Hct 32.5 L MCV 102.0 H MCH 34.0 H MCHC 33.3 RDW 14.7 H Plt Count 196 MPV 8.3 Neut % (Auto) 77.6 H Lymph % (Auto) 9.9 L [place] % (Auto) 7.0 Eos % (Auto) 5.2 H Baso % (Auto) 0.3 Neut # 7.2 H Lymph # 0.9 L [place] # 0.7 Eos # 0.5 Baso # 0.0 Neutrophils % (Manual) 68 Band Neutrophils % 17 H* Lymphocytes % (Manual) 5 L Monocytes % (Manual) 6 Eosinophils % (Manual) 4 Toxic Granulation Present Dohle Bodies Present Platelet Estimate Normal RBC Morphology Basophilic Stippling Slight Macrocytosis (manual) Moderate Puncture Site pCO2 pO2 HCO3 ABG pH ABG Total CO2 ABG O2 Saturation ABG Base Excess Anish Test ABG Potassium Glucose Lactate Sodium 138 Potassium 4.2 Chloride 103 Carbon Dioxide 24 Anion Gap 15 BUN 11 Creatinine 0.8 Est GFR ( Amer) > 60 Est GFR (Non-Af Amer) > 60 POC Glucose (mg/dL) 96 Random Glucose 107 Hemoglobin A1c Calcium 8.0 L Phosphorus 2.2 L Magnesium 2.3 Total Bilirubin 0.8 AST 19 ALT 18 L Alkaline Phosphatase 68 Total Protein 6.4 Albumin 3.4 L Globulin 2.9 Albumin/Globulin Ratio 1.2 Vitamin B12 Folate Arterial Blood Potassium
--- NOTE | 2016-10-14 11:09 | CP.PCM.PN ---
Subjective - Date & Time of Evaluation Date of Evaluation: 10/14/16 Time of Evaluation: 10:40 - Subjective Subjective: pt. feels better feels hungry no abdominal pain Objective - Vital Signs/Intake and Output Vital Signs (last 24 hours): Temp Pulse Resp BP Pulse Ox 97.9 F 56 L 20 126/71 95 10/14/16 07:16 10/14/16 08:30 10/14/16 07:16 10/14/16 07:16 10/14/16 07:16 Intake and Output: 10/14/16 10/14/16 06:59 18:59 Intake Total 2150 Output Total 5 Balance 2145 - Medications Medications: Current Medications Albuterol/Ipratropium (Duoneb 3 Mg/0.5 Mg (3 Ml) Ud) 3 ml INH RQ6 [facility] Last Admin: 10/14/16 07:46 Dose: 3 ml Enoxaparin Sodium (Lovenox) 40 mg SC DAILY [facility] Potassium Chloride 40 meq/ (Dextrose/Sodium Chloride) 1,020 mls @ 125 mls/hr IV .Q8H10M [facility] Last Admin: 10/14/16 03:36 Dose: Not Given Piperacillin Sod/Tazobactam (Sod 3.375 gm/ Sodium Chloride) 100 mls @ 100 mls/ hr IVPB Q8 [facility] Last Admin: 10/14/16 05:44 Dose: 100 mls/hr Insulin Aspart (Novolog) 0 unit SC ACHS [facility] PRN Reason: Protocol Last Admin: 10/14/16 09:21 Dose: Not Given Metoclopramide HCl (Reglan) 5 mg IVP Q6 [facility] Last Admin: 10/14/16 06:55 Dose: 5 mg Pantoprazole Sodium (Protonix Inj) 40 mg IVP DAILY [facility] Last Admin: 10/14/16 09:22 Dose: 40 mg - Labs Labs: 10/14/16 07:34 10/14/16 07:34 - Constitutional Appears: Well - Head Exam Head Exam: ATRAUMATIC, NORMAL INSPECTION, NORMOCEPHALIC - Eye Exam Eye Exam: EOMI, Normal appearance, PERRL Pupil Exam: NORMAL ACCOMODATION, PERRL - ENT Exam ENT Exam: Mucous Membranes Moist, Normal Exam - Neck Exam Neck Exam: Full ROM, Normal Inspection. absent: Lymphadenopathy - Respiratory Exam Respiratory Exam: Decreased Breath Sounds - Cardiovascular Exam Cardiovascular Exam: REGULAR RHYTHM, +S1, +S2 - GI/Abdominal Exam GI & Abdominal Exam: Soft, Diminished Bowel Sounds - Rectal Exam Rectal Exam: Deferred Assessment and Plan - Assessment and Plan (Free Text) Plan: regular diet f/u with Dr. Thapa ready for discharge
[2016-10-14] MEDS ORDERED: Benzocaine/Menthol (Cepacol) Lozenge MT PRN (13:18)
--- NOTE | 2016-10-14 13:21 | CP.PCM.PN ---
<Ambreen Veloz - Last Filed: 10/14/16 13:18> Subjective - Date & Time of Evaluation Date of Evaluation: 10/14/16 Time of Evaluation: 09:00 - Subjective Subjective: Medicine Progress Note- Dr. Mariam Mace's Service: Patient seen and examined at bedside this AM. Patient states he is hungry. He had not had any flatus or a BM as of 9:15 this morning. Surgery to advance diet to regular diet. Patient states he feels well and has no abdominal pain. Admits to some sore throat secondary to NGT placed and removed during admission. No acute events overnight. Objective - Vital Signs/Intake and Output Vital Signs (last 24 hours): Temp Pulse Resp BP Pulse Ox 97.9 F 56 L 20 126/71 95 10/14/16 07:16 10/14/16 08:30 10/14/16 07:16 10/14/16 07:16 10/14/16 07:16 Intake and Output: 10/14/16 10/14/16 06:59 18:59 Intake Total 2150 Output Total 5 Balance 2145 - Medications Medications: Current Medications Albuterol/Ipratropium (Duoneb 3 Mg/0.5 Mg (3 Ml) Ud) 3 ml INH RQ6 [facility] Last Admin: 10/14/16 07:46 Dose: 3 ml Enoxaparin Sodium (Lovenox) 40 mg SC DAILY [facility] Potassium Chloride 40 meq/ (Dextrose/Sodium Chloride) 1,020 mls @ 125 mls/hr IV .Q8H10M [facility] Last Admin: 10/14/16 03:36 Dose: Not Given Piperacillin Sod/Tazobactam (Sod 3.375 gm/ Sodium Chloride) 100 mls @ 100 mls/ hr IVPB Q8 [facility] Last Admin: 10/14/16 05:44 Dose: 100 mls/hr Insulin Aspart (Novolog) 0 unit SC ACHS [facility] PRN Reason: Protocol Last Admin: 10/14/16 09:21 Dose: Not Given Metoclopramide HCl (Reglan) 5 mg IVP Q6 [facility] Last Admin: 10/14/16 06:55 Dose: 5 mg Pantoprazole Sodium (Protonix Inj) 40 mg IVP DAILY [facility] Last Admin: 10/14/16 09:22 Dose: 40 mg - Labs Labs: 10/14/16 07:34 04/18/17 07:34 - Constitutional Appears: No Acute Distress - Head Exam Head Exam: NORMAL INSPECTION, NORMOCEPHALIC - Eye Exam Eye Exam: EOMI, Normal appearance - ENT Exam ENT Exam: Mucous Membranes Moist - Neck Exam Neck Exam: Full ROM, Normal Inspection - Respiratory Exam Respiratory Exam: Clear to Ausculation Bilateral, NORMAL BREATHING PATTERN - Cardiovascular Exam Cardiovascular Exam: REGULAR RHYTHM, +S1, +S2 - GI/Abdominal Exam GI & Abdominal Exam: Soft, Hypoactive Bowel Sounds. absent: Distended, Tenderness - Extremities Exam Extremities Exam: Full ROM, Normal Inspection. absent: Pedal Edema - Back Exam Back Exam: NORMAL INSPECTION - Neurological Exam Neurological Exam: Alert, Awake, Oriented x3 - Psychiatric Exam Psychiatric exam: Normal Affect, Normal Mood - Skin Skin Exam: Dry, Normal Color, Warm Assessment and Plan - Assessment and Plan (Free Text) Assessment: (1) SBO (small bowel obstruction) Assessment & Plan: WBC and Bandemia improved. Surgery consult placed- Dr. Thapa- help appreciated. * NG tube DC yesterday. * Patient tolerating CLD, diet advanced to regular today. * Patient had BM and flatus as per later reports. Patient cleared for surgical standpoint. OBS series 10/13/16: showed small loops of bowel with NGT in good position. Status: Acute (2) Bandemia Assessment & Plan: bands of 17, Improved from 22 yesterday. ID- Dr. Valencia- consulted- help appreciated. * CXR 10/13: Patchy bibasilar airspace opacities ; left greater than right. Trace left pleural effusion. * Continue Zosyn IVPB * F/U blood culture. Status: Acute (3) Diabetes Assessment & Plan: Hgb A1C 7.5 accu checks achs Insulin sliding scale Status: Acute (4) HTN (hypertension) Status: Acute BP controlled off BP meds. Add meds as needed. (5) Prophylactic measure Assessment & Plan: Protonix 40mg IVP daily Lovenox 40mg sc daily Status: Acute All management as per Dr. Stephanie Mace. <Demi Mace - Last Filed: 01/28/17 21:11> Objective - Vital Signs/Intake and Output Vital Signs (last 24 hours): Temp Pulse Resp BP Pulse Ox 97.8 F 60 20 121/66 93 L 10/15/16 00:00 10/15/16 08:00 10/15/16 00:00 10/15/16 00:00 10/15/16 00:00 - Labs Labs: 10/15/16 06:55 10/15/16 06:55 Assessment and Plan (1) Abdominal pain Status: Acute (2) Abnormal CT of brain Status: Acute (3) Bandemia Status: Acute (4) Bronchitis Status: Acute (5) Diabetes Status: Acute (6) Elevated LFTs Status: Acute (7) HTN (hypertension) Status: Acute (8) Headache Status: Acute (9) Headache Status: Acute (10) Pharyngitis Status: Acute (11) Prophylactic measure Status: Acute (12) SBO (small bowel obstruction) Status: Acute Attending/Attestation - Attestation I have personally seen and examined this patient.: Yes I have fully participated in the care of the patient.: Yes I have reviewed all pertinent clinical information, including history, physical exam and plan: Yes Notes (Text): Case seen and discussed with the resident and staff management as ordered patient improved
[2016-10-15] MEDS: Albuterol-Ipratrop 3 mg / 0.5 (3 ml) UD INH SCH ×3 (01:16→13:12)
[2016-10-15 01:28] VITALS: BP 121/66; PULSE 60; TEMP 97.8; O2SAT 93
[2016-10-15] MEDS: Piperacillin/Tazobact 3.375 GM in Sodium Chloride 0.9% 100 ML IVPB SCH ×2 (05:34→13:40)
--- NOTE | 2016-10-15 05:44 | CON ---
DATE: 10/14/2016 REASON FOR CONSULTATION: A 65-year-old male, patient of Dr. Demi Mace, admitted to [facility] with a chief complaint of severe abdominal pain, weakness, lethargy, and fatigue. He was found to have small-bowel obstruction and possibility of ongoing infection was considered. IV antibiotic therapy was started. Infectious disease consultation requested. PAST MEDICAL HISTORY: Positive for hypertension. Denies any history of diabetes, heart disease, laquita er disease, cancer, stroke. FAMILY HISTORY: Positive for high blood pressure. ALLERGIES: None. REVIEW OF SYSTEMS: Positive for abdominal pain. Negative for headache, earache, toothache, visual d isturbances. Negative for weight loss, nausea, vomiting, diarrhea. Negative for anterior chest pain . Positive for abdominal pain. Denies any blood in the stool or urine. Denies any frequency or urg ency of urination. ALLERGIES: No known allergies to medications. PHYSICAL EXAMINATION: GENERAL: Reveals a thin, but well-nourished adult male. He denies any headache at this time. VITAL SIGNS: T-max 100, blood pressure 130/70, pulse 76. HEENT: Normocephalic, atraumatic. Eyes: Pupils reactive. Sclerae nonicteric. Extraocular muscles intact. Ears: Normal. Nose: Normal. Throat: Normal. Pharynx: Not injected. Tongue: Midline . No thrush. NECK: No rigidity. No thyromegaly. No bruits. No tracheal deviation. No masses. CHEST: Symmetrical expansion bilaterally. entry decreased. Decreased breath sounds bilateral ly. Scattered rhonchi. No wheezes. HEART: S1, S2 regular. No murmurs, rubs, or gallops. ABDOMEN: Soft, distended. Bowel sounds diminished. No rebound. No guarding. No masses. RECTAL: Deferred. EXTREMITIES: Reveal osteoarthritic changes. Pulses palpable. Joints freely mobile. LABORATORY DATA: Labs, x-rays, and cultures reviewed. CT abdomen and pelvis reviewed. PLAN: Is to continue conservative therapy. Continue IV antibiotic therapy, pending results of cultu res. GI consultation for possible EGD, colonoscopy. The patient will continue current therapy. Thank you very much for allowing me to participate in care of your patients. Brandno Valencia MD cc: [id number] TT: 10/15/2016 05:43:50 Confirmation # [id number] Dictation # [id number] tn
[2016-10-15 07:12] LABS: CHLORIDE 103 mmol/L (98-107); POTASSIUM 3.8 mmol/L (3.6-5.2); SODIUM 138 mmol/L (132-148)
[2016-10-15 07:14] LABS: GFR AFRICAN-AMERICAN > 60
[2016-10-15 07:15] LABS: ALB/GLOB RATIO 1.1 (1.0-2.1); ALKALINE PHOSPHATASE 93 U/L (38-126); ALT/SGPT 24 U/L (21-72); AST/SGOT 24 U/L (17-59); BILIRUBIN,TOTAL 0.7 mg/dL (0.2-1.3); BLOOD UREA NITROGEN 10 mg/dL (9-20); CALCIUM 8.2 mg/dl (8.6-10.4); CARBON DIOXIDE 21 mmol/L (22-30); GLUCOSE,RANDOM 110 mg/dL (75-110); TOTAL PROTEIN 6.6 g/dL (6.3-8.3)
[2016-10-15 07:16] LABS: BASO % 0.5 % (0.0-2.0); EOS # 0.8 K/uL (0.0-0.7); EOS % 11.4 % (0.0-4.0); LYMPH % 15.8 % (20.0-40.0); MAGNESIUM 1.9 mg/dL (1.6-2.3); MEAN CELL VOLUME 101.2 fL (80.0-94.0); MEAN CORPUSCULAR HEMOGLOBIN 33.3 pg (27.0-31.0); MEAN CORPUSCULAR HGB CONC 32.9 g/dL (33.0-37.0); MEAN PLATELET VOLUME 8.3 fL (7.2-11.7); MONO # 0.5 K/uL (0.0-0.8); MONO % 7.7 % (0.0-10.0); NRBC % 0.1 % (0.0-2.0); RED CELL DISTRIBUTION WIDTH 14.3 % (11.5-14.5); WHITE BLOOD COUNT 6.6 K/uL (4.8-10.8)
[2016-10-15] MEDS: (Novolog) Insulin Aspart, Recombinant 100 u/ml 10 ml vial SC SCH ×2 (07:41→12:39)
[2016-10-15] MEDS: Enoxaparin 40 mg Syringe SC SCH (09:52)
--- NOTE | 2016-10-15 10:41 | CP.PCM.PN ---
Subjective - Date & Time of Evaluation Date of Evaluation: 10/15/16 Time of Evaluation: 11:00 - Subjective Subjective: Dr. Victor Manuel Mace service: Patient seen in room. He denies pain, nausea,vomiting, tolerating diet, had 2 bowel movements and passing gas. He also denies fever, chills. Objective - Vital Signs/Intake and Output Vital Signs (last 24 hours): Temp Pulse Resp BP Pulse Ox 97.8 F 60 20 121/66 93 L 10/15/16 00:00 10/15/16 00:00 10/15/16 00:00 10/15/16 00:00 10/15/16 00:00 Intake and Output: 10/15/16 10/15/16 06:59 18:59 Intake Total 1050 Balance 1050 - Medications Medications: Current Medications Albuterol/Ipratropium (Duoneb 3 Mg/0.5 Mg (3 Ml) Ud) 3 ml INH RQ6 [facility] Last Admin: 10/15/16 07:54 Dose: 3 ml Benzocaine/Menthol (Cepacol Sore Throat) 1 [place] Q4H PRN PRN Reason: Sore Throat Enoxaparin Sodium (Lovenox) 40 mg SC DAILY [facility] Last Admin: 10/15/16 09:52 Dose: 40 mg Piperacillin Sod/Tazobactam (Sod 3.375 gm/ Sodium Chloride) 100 mls @ 100 mls/ hr IVPB Q8 [facility] Last Admin: 10/15/16 05:34 Dose: 100 mls/hr Insulin Aspart (Novolog) 0 unit SC ACHS [facility] PRN Reason: Protocol Last Admin: 10/15/16 07:41 Dose: Not Given Metoclopramide HCl (Reglan) 5 mg IVP Q6 [facility] Last Admin: 10/15/16 05:34 Dose: 5 mg Pantoprazole Sodium (Protonix Inj) 40 mg IVP DAILY [facility] Last Admin: 10/15/16 09:52 Dose: 40 mg - Labs Labs: 10/15/16 06:55 10/15/16 06:55 - Constitutional Appears: Non-toxic, No Acute Distress - Head Exam Head Exam: ATRAUMATIC, NORMAL INSPECTION, NORMOCEPHALIC - Eye Exam Eye Exam: Normal appearance - ENT Exam ENT Exam: Normal Exam - Neck Exam Neck Exam: Normal Inspection - Respiratory Exam Respiratory Exam: Clear to Ausculation Bilateral. absent: Rhonchi, Wheezes - Cardiovascular Exam Cardiovascular Exam: Gallop, REGULAR RHYTHM, Rubs. absent: RRR, +S1, +S2 - GI/Abdominal Exam GI & Abdominal Exam: Soft, Normal Bowel Sounds. absent: Tenderness - Extremities Exam Extremities Exam: Normal Inspection. absent: Pedal Edema - Back Exam Back Exam: NORMAL INSPECTION - Skin Skin Exam: Normal Color Assessment and Plan (1) SBO (small bowel obstruction) Assessment & Plan: Resolved, patient discharged home per Dr. Mace Status: Acute (2) Diabetes Status: Acute (3) HTN (hypertension) Status: Acute (4) Bandemia Status: Acute (5) Prophylactic measure Status: Acute
[2016-10-15] MEDS ORDERED: Pneumococcal 23-Valent Vaccine IM ONE (14:51)
== END 2016-10-15 15:45 | disposition home or self-care (01) | DRG 390 ==
LOC: C.ER 19:47 → C.3T 10-12 01:14 → C.5T 10-12 18:47
PROVIDERS: ADMIT Internal Medicine Nephrology; ATTEND Internal Medicine Nephrology
DX: K56.60 Unspecified intestinal obstruction (principal); I10 Essential (primary) hypertension; E11.9 Type 2 diabetes mellitus without complications; D72.825 Bandemia; E78.5 Hyperlipidemia, unspecified